=== PATIENT | female | born 1945 | race Caucasian/White ===

== ENCOUNTER 2018-03-01 23:34 | Emergency (ER) | payer OTHER ==
[~2018-03-01] VITALS: Ht 152.4 cm; Wt 93.0 kg
--- NOTE | 2018-03-02 01:10 | ED SKIN/ALLERGY COMPLAINT ---
History of Present Illness General Chief Complaint: Skin Rash/ Abcess Stated Complaint: PT C/O BLEEDING MOLE ON BACK PT ON PLAVIX Source: patient Exam Limitations: no limitations Vital Signs & Intake/Output Vital Signs & Intake/Output Vital Signs Date Time Temp Pulse Resp B/P B/P Pulse O2 O2 Flow FiO2 Mean Ox Delivery Rate 03/02 0001 98.1 88 20 132/78 96 Room Air Room Air ED Intake and Output 03/02 0000 03/01 1200 Intake Total Output Total Balance Patient 205 lb Weight Allergies Coded Allergies: morphine (Mild, SLOW HEART RATE 03/01/18) Triage Note: 72YO FEMALE TO TRIAGE W/CO BLEEDING PRESENT MID BACK SP "MOLE REMVOED ACCIDENTALLY FROM THE AREA SP TAKING A BATH TONITE" PT STATES SHE IS ON PLAVIX. DRSG PRESENT --SATURATED W/FRESH RED BLOOD. Triage Nurses Notes Reviewed? yes HPI: Patient presents for evaluation of bleeding from a mole that began abruptly while taking a bath. Patient states that she "removed" accidentally and since has had constant severe bleeding from the back. Nothing she has done has seemed to make it feel better including "liquid skin". Elevations states that she is prescribed Plavix. Past History Travel History Traveled to [place] past 21 day No Medical History Any Pertinent Medical History? see below for history Neurological: CVA, seizure EENT: NONE Cardiovascular: CHF, hypertension, myocardial infarction Respiratory: COPD Gastrointestinal: diverticulitis, GERD Hepatic: NONE Renal: nephrolithiasis Musculoskeletal: degen joint disease Psychiatric: NONE Endocrine: diabetes Surgical History Surgical History: non-contributory Psychosocial History What is your primary language [place] Tobacco Use: Never used Family History Hx Contributory? No Review of Systems Review of Systems Constitutional: Reports: no symptoms. EENTM: Reports: no symptoms. Respiratory: Reports: no symptoms. Cardiovascular: Reports: no symptoms. GI: Reports: no symptoms. Genitourinary: Reports: no symptoms. Musculoskeletal: Reports: no symptoms. Skin: Reports: see HPI. Neurological/Psychological: Reports: no symptoms. Hematologic/Endocrine: Reports: no symptoms. Immunologic/Allergic: Reports: no symptoms. All Other Systems: Reviewed and Negative Physical Exam Physical Exam General Appearance: SEE BELOW Comments: Gen.: Well-nourished, well-developed, no acute respiratory distress. Head: Normocephalic, atraumatic. Eyes: Normal inspection bilaterally Ears: Normal inspection bilaterally Nose: Normal inspection Throat/mouth : Moist mucosa Neck: Supple, full range of motion, no goiter Lungs: Quiet respirations Back: Normal range of motion Extremities: Normal range of motion grossly, no cyanosis clubbing or edema of the upper extremities Neurologic: Cranial nerves grossly intact, speech is clear Skin: warm and dry, small area of bleeding from the mid back from a shallow- appearing abrasion or ulceration. No nevus present. Psychiatric: Calm, cooperative, no apparent delusions or hallucinations Progress Differential Diagnosis: SKIN LESION BLEEDING Plan of Care: SEE D/C INSTRUCTIONS Comments: Skin to placed on area of bleeding with improvement to simple OOZING. KALTOstat and gauze dressing placed. 03/02/2018 1:43:36 AM patient's dressing remains clean and she is feeling ready to go home. Departure Departure Disposition: HOME OR SELF CARE Condition: Stable Clinical Impression Primary Impression: Hemorrhage of skin lesion Referrals: Unknown (PCP/Family) Additional Instructions: This dressing in place for 24 hours and then gently replace it with a similar dressing. Follow-up with your primary care physician on Sunday for reevaluation and consideration of skin cancer. Return if any concerns or sudden worsening. Departure Forms: Customer Survey General Discharge Information
[2018-03-02 01:54] VITALS: BP 128/77
== END 2018-03-02 01:55 ==
LOC: ERH 23:34
DX: L98.9 Disorder of the skin and subcutaneous tissue, unspecified (principal)